=== PATIENT | female | born 1990 | race Asian ===

== ENCOUNTER 2017-10-01 15:53 | Emergency (ER) | payer OTHER ==
[~2017-10-01] VITALS: Ht 160 cm; Wt 71.2 kg
[2017-10-01 16:20] VITALS: BP 132/83; TEMP 98.6
== END 2017-10-01 17:22 | disposition home or self-care (01) ==
LOC: ED 15:53
DX: K02.9 Dental caries, unspecified (principal); K04.7 Periapical abscess without sinus; R68.84 Jaw pain
CPT/HCPCS: 96372; 99282; J0696; J1885

== ENCOUNTER 2017-11-25 11:22 | Emergency (ER) | payer OTHER ==
[~2017-11-25] VITALS: Ht 160 cm; Wt 69.4 kg
[2017-11-25 12:48] VITALS: BP 118/80; TEMP 98.2
== END 2017-11-25 12:49 | disposition home or self-care (01) ==
LOC: ED 11:22
DX: S93.491A Sprain of other ligament of right ankle, initial encounter (principal); W10.9XXA Fall (on) (from) unspecified stairs and steps, initial encounter; Y92.098 Other place in other non-institutional residence as the place of occurrence of the external cause
CPT/HCPCS: 96372; 99283; J1885

== ENCOUNTER 2019-02-15 19:19 | Emergency (ER) | payer OTHER ==
[~2019-02-15] VITALS: Ht 160 cm; Wt 68.5 kg
[2019-02-15 19:50] VITALS: BP 105/71; TEMP 98.6
== END 2019-02-15 20:38 | disposition home or self-care (01) ==
LOC: ED 19:19
DX: R09.89 Other specified symptoms and signs involving the circulatory and respiratory systems (principal); R05 Cough
CPT/HCPCS: 99281

== ENCOUNTER 2019-03-15 02:43 | Emergency (ER) | payer OTHER ==
[~2019-03-15] VITALS: Ht 160 cm; Wt 72.1 kg
[2019-03-15 04:30] VITALS: BP 105/70; TEMP 98.2
== END 2019-03-15 04:30 | disposition home or self-care (01) ==
LOC: ED 02:43
DX: M94.0 Chondrocostal junction syndrome [Tietze] (principal); R07.89 Other chest pain; S16.1XXA Strain of muscle, fascia and tendon at neck level, initial encounter; V49.40XA Driver injured in collision with unspecified motor vehicles in traffic accident, initial encounter
CPT/HCPCS: 99283

== ENCOUNTER 2020-06-02 09:03 | Emergency (ER) | payer OTHER ==
[~2020-06-02] VITALS: Ht 160 cm; Wt 72.6 kg
[2020-06-02 09:09] VITALS: TEMP 98.6
[2020-06-02 09:53] LABS: PLATELET COUNT 309 K/uL (152-353)
[2020-06-02 10:15] LABS: POTASSIUM 3.6 mmol/L (3.6-5.2)
[2020-06-02 12:22] VITALS: BP 118/69
== END 2020-06-02 12:22 | disposition home or self-care (01) ==
LOC: ED 09:03
PROVIDERS: Family Medicine
DX: S46.811A Strain of other muscles, fascia and tendons at shoulder and upper arm level, right arm, initial encounter (principal)
CPT/HCPCS: 80053; 81000; 81025; 85027; 99283

== ENCOUNTER 2023-01-01 16:10 | Emergency (ER) | payer OTHER ==
[~2023-01-01] VITALS: Ht 160 cm; Wt 68.5 kg
[2023-01-01 16:15] VITALS: TEMP 98.9
[2023-01-01 17:46] VITALS: BP 122/87
== END 2023-01-01 17:46 | disposition home or self-care (01) ==
LOC: ED 16:10
PROC: 2W3QX1Z Immobilization of Right Lower Leg using Splint (ICD-10-PCS; principal; 2023-01-01)
DX: S93.491A Sprain of other ligament of right ankle, initial encounter (principal); W03.XXXA Other fall on same level due to collision with another person, initial encounter; Y92.89 Other specified places as the place of occurrence of the external cause
CPT/HCPCS: 99283

== ENCOUNTER 2023-12-31 13:38 | Emergency (ER) | payer OTHER ==
[~2023-12-31] VITALS: Ht 160 cm; Wt 68.9 kg
[2023-12-31 13:45] VITALS: BP 124/75; TEMP 98.7
== END 2023-12-31 14:43 | disposition home or self-care (01) ==
LOC: ED 13:38
DX: J02.9 Acute pharyngitis, unspecified (principal); H57.9 Unspecified disorder of eye and adnexa; H10.9 Unspecified conjunctivitis
CPT/HCPCS: 87502; 87651; 99283